=== PATIENT | male | born 1970 | race Caucasian/White ===

== ENCOUNTER 2025-03-12 18:09 | Emergency (ER) | payer OTHER ==
[~2025-03-12] VITALS: Ht 177.8 cm; Wt 102.1 kg
[2025-03-12 18:24] VITALS: RESP 15; TEMP 98.4
[2025-03-12] MEDS: SODIUM CHLORIDE 0.9% 1000ML 1,000 ML IV ONE (19:37)
[2025-03-12] MEDS: METOPROLOL TARTRATE INJ 1 MG/ML VIAL IV ONE (19:37)
[2025-03-12 20:02] LABS: ALBUMIN 3.5 g/dL (3.5-5.0); ANION GAP 14.9 mmol/L (8-16); BILIRUBIN,TOTAL 0.4 mg/dL (0.2-1.2); CREATININE, SERUM 0.86 mg/dL (0.72-1.25); POTASSIUM 3.9 mmol/L (3.5-5.1); TOTAL PROTEIN 7.1 g/dL (6.5-8.1)
[2025-03-12 20:06] LABS: BASOPHILS % 0.6 % (0.0-1.0); EOSINOPHILS # (AUTO) 0.2 (0.0-0.4); EOSINOPHILS % 3.4 % (0.0-6.0); HEMATOCRIT 39.9 % (38.2-49.6); HEMOGLOBIN 13.8 g/dL (14.0-18.0); LYMPHOCYTES # (AUTO) 2.2 (1.0-3.2); LYMPHOCYTES % 31.6 % (18.0-39.1); MEAN CORPUSCULAR HEMOGLOBIN 31.7 pg (28-32); MEAN CORPUSCULAR HGB CONC 34.6 g/dL (31-35); MEAN CORPUSCULAR VOLUME 91.7 fL (81-99); MONOCYTES # (AUTO) 0.6 (0.2-0.8); MONOCYTES % 9.1 % (4.4-11.3); NEUTROPHILS # (AUTO) 3.9 (2.1-6.9); PLATELET COUNT 303 x10e3/uL (140-360); RED BLOOD COUNT 4.35 x10e6/uL (4.3-5.7); RED CELL DISTRIBUTION WIDTH 12.9 % (11.7-14.4); WHITE BLOOD COUNT 7.02 x10e3/uL (4.8-10.8)
[2025-03-12 21:05] VITALS: PULSE 73
[2025-03-12] MEDS ORDERED: METOPROLOL TART25 MG PO (21:08)
[2025-03-12 21:17] VITALS: BP 145/98; PULSE 79; RESP 17; O2SAT 100
== END 2025-03-12 21:22 | disposition home or self-care (01) ==
LOC: ER 18:49
DX: R00.0 Tachycardia, unspecified (principal); I10 Essential (primary) hypertension; E78.5 Hyperlipidemia, unspecified; F41.9 Anxiety disorder, unspecified; F32.A Depression, unspecified
CPT/HCPCS: 36415; 71045; 80053; 83880; 84484; 85025; 93005; 99284; J7030